=== PATIENT | male | born 1965 | race Two or more races ===

== ENCOUNTER → 2017-01-16 | Outpatient (CLI) | payer OTHER ==
[2015-09-14 11:08] VITALS: BP 120/85
[~2017-01-16] MED LIST: HYDR-971 PO
--- NOTE | 2017-01-16 16:06 | RAD ---
Exam performed: Complete abdominal sonogram. Indication:Abdominal pain Date of exam: 01/16/17 Technique:Real time valdez scale imaging of the abdomen is performed and images are obtained. Findings : The liver is somewhat increased in size and measures 19.1 cm. Mild hepatic steatosis. No intra- or extrahepatic biliary dilatation is present. The common duct measures 3.0 mm . The gallbladder appears normal. The pancreas is suboptimally evaluated due to overlying bowel gas. The spleen in size and measures 9.0 cm. Both kidneys are unremarkable without evidence for hydronephrosis. Right kidney measures 11.3 x 6.0 x 5.4 and the left kidney measures 10.1 x 5.1 x 5.5. The inferior vena cava and aorta appear normal. Impression: Hepatomegaly with diffuse hepatic steatosis.
== END | disposition home or self-care (01) ==
LOC: US 15:08
PROVIDERS: ATTEND Family Medicine
DX: K76.0 Fatty (change of) liver, not elsewhere classified (principal); R16.0 Hepatomegaly, not elsewhere classified
CPT/HCPCS: 76700

== ENCOUNTER 2018-08-17 11:53 | Inpatient (IN) | payer OTHER ==
[~2018-08-17] VITALS: Ht 165.1 cm; Wt 80.3 kg
[~2018-08-17 11:53] MED LIST changes: +HYDR-3164 PO; -HYDR-971 PO
[2018-08-17] MEDS ORDERED: fentaNYL PF VIAL 100 MCG/2 ML VIAL IV ONE (12:45)
[2018-08-17] MEDS ORDERED: ONDANSETRON PF 4 MG/2 ML VIAL. IV ONE (12:45)
[2018-08-17] MEDS ORDERED: IV NORMAL SALINE 1000ML BAG 1,000 ML IV ONE ×2 (12:45→13:15)
[2018-08-17 12:52] LABS: BASO % 0 % (0-3); EOS % 0 % (0-3); HEMATOCRIT 54.8 % (39.0-53.0); HEMOGLOBIN 18.6 g/dL (13.0-17.5); LYMPH # 0.4 x10^3/uL (1.0-4.8); LYMPH % 6 % (24-48); MEAN CORPUSCULAR HEMOGLOBIN 31 pg (25-35); MEAN CORPUSCULAR HGB CONC 34 g/dL (31-37); MEAN CORPUSCULAR VOLUME 90 fL (79-100); MONO # 0.7 x10^3/uL (0.0-1.1); MONO % 11 % (0-9); NEUT # 5.4 x10^3uL (1.8-7.7); NEUT % 82 % (31-73); PLATELET COUNT 259 x10^3/uL (140-400); RED BLOOD COUNT 6.09 x10^6/uL (4.30-5.70); RED CELL DISTRIBUTION WIDTH 13.9 % (11.5-14.5); WHITE BLOOD COUNT 6.5 x10^3/uL (4.0-11.0)
[2018-08-17 13:00] LABS: PROTHROMBIN TIME PATIENT 13.3 SEC (11.7-14.0)
[2018-08-17 13:03] LABS: CALCIUM 8.3 mg/dL (8.5-10.1); CREATININE 1.9 mg/dL (0.7-1.3); GFR 37.1; POTASSIUM 3.6 mmol/L (3.5-5.1)
[2018-08-17 13:09] LABS: ALBUMIN 4.4 g/dL (3.4-5.0); TOTAL BILIRUBIN 0.6 mg/dL (0.2-1.0); TOTAL PROTEIN 8.9 g/dL (6.4-8.2)
--- NOTE | 2018-08-17 13:38 | PHYS DOC ---
Past Medical History Past Medical History: Other Additional Past Medical Histor: ULCER Past Surgical History: Other Additional Past Surgical Histo: TUMOR ON STOMACH Alcohol Use: None Drug Use: None Adult General Chief Complaint Chief Complaint: ABDOMINAL PAIN HPI HPI Patient is a 53 year old with two day history of fever, chills, nausea, vomiting, and diarrhea accompanied by generalized abdominal pain. Patient has had multiple episodes of vomiting and watery diarrhea and was seen by Dr. Guerrero prior to coming to the ER, who ordered upright and supine abdominal xray which demonstrated multiple dilate loops of small bowel with air-fluid levels suspicious for bowel obstruction. Pt reports he had abdominal surgery several years ago for an abdominal tumor. Pt denies CP, SOB. cramping diffuse x twenty four hours. Review of Systems Review of Systems Constitutional: Denies fever. Reports chills.[] Eyes: Denies change in visual acuity, redness, or eye pain [] HENT: Denies nasal congestion or sore throat [] Respiratory: Denies cough or shortness of breath [] Cardiovascular: No additional information not addressed in HPI [] GI: Reports generalized abdominal pain, repeated episodes of nausea and vomiting and diarrhea. Denies hematochezia and blood per rectum. [] : Denies dysuria or hematuria [] Musculoskeletal: Denies back pain or joint pain [] Integument: Denies rash or skin lesions [] Neurologic: Denies headache, focal weakness or sensory changes [] Endocrine: Denies polyuria or polydipsia [] All other systems were reviewed and found to be within normal limits, except as documented in this note. Current Medications Current Medications Current Medications Medications (Trade) Dose Ordered Sig/Dev Start Time Stop Time Status Last Admin Dose Admin Fentanyl Citrate (Fentanyl 2ml Vial) 50 mcg 1X ONCE 08/17/18 12:45 08/17/18 12:46 DC 08/17/18 13:11 50 MCG Ondansetron HCl (Zofran) 4 mg 1X ONCE 08/17/18 12:45 08/17/18 12:46 DC 08/17/18 13:11 4 MG Sodium Chloride 1,000 ml @ 1,000 mls/hr 1X ONCE 08/17/18 13:15 08/17/18 14:14 DC 08/17/18 14:41 1,000 MLS/HR Allergies Allergies Allergies Coded Allergies Type Severity Reaction Last Updated Verified No Known Drug Allergies 09/06/15 No Physical Exam Physical Exam Constitutional: Well developed, well nourished, appears uncomfortable but in no acute distress, non-toxic appearance. [] HENT: Normocephalic, atraumatic, bilateral external ears normal, oropharynx moist, no oral exudates, nose normal. [] Eyes: PERRLA, EOMI, conjunctiva normal, no discharge. [] Neck: Normal range of motion, no tenderness, supple, no stridor. [] Cardiovascular:Heart rate regular rhythm, no murmur [] Lungs & Thorax: Bilateral breath sounds clear to auscultation [] Abdomen: Large, pink, well healed, centrally located surgical scar. Bowel sounds auscultated in RUQ, diminished in RLQ, LUQ and LLQ. Abdomen soft, with LUQ, LLQ tenderness tenderness, no masses, no pulsatile masses. [] Skin: Warm, dry, no erythema, no rash. [] Back: No tenderness, no CVA tenderness. [] Extremities: No tenderness, no cyanosis, no clubbing, ROM intact, no edema. [] Neurologic: Alert and oriented X 3, normal motor function, normal sensory function, no focal deficits noted. [] Psychologic: Affect normal, judgement normal, mood normal. [] Current Patient Data Vital Signs Vital Signs Date Time Temp Pulse Resp B/P (MAP) Pulse Ox O2 Delivery O2 Flow Rate FiO2 08/17/18 13:46 109 128/84 (99) 91 Room Air 08/17/18 12:08 98.9 18 98.9 Lab Values Laboratory Tests Test 08/17/18 12:33 White Blood Count 6.5 x10^3/uL (4.0-11.0) Red Blood Count 6.09 x10^6/uL (4.30-5.70) H Hemoglobin 18.6 g/dL (13.0-17.5) H Hematocrit 54.8 % (39.0-53.0) H Mean Corpuscular Volume 90 fL (79-100) Mean Corpuscular Hemoglobin 31 pg (25-35) Mean Corpuscular Hemoglobin Concent 34 g/dL (31-37) Red Cell Distribution Width 13.9 % (11.5-14.5) Platelet Count 259 x10^3/uL (140-400) Neutrophils (%) (Auto) 82 % (31-73) H Lymphocytes (%) (Auto) 6 % (24-48) L Monocytes (%) (Auto) 11 % (0-9) H Eosinophils (%) (Auto) 0 % (0-3) Basophils (%) (Auto) 0 % (0-3) Neutrophils # (Auto) 5.4 x10^3uL (1.8-7.7) Lymphocytes # (Auto) 0.4 x10^3/uL (1.0-4.8) L Monocytes # (Auto) 0.7 x10^3/uL (0.0-1.1) Eosinophils # (Auto) 0.0 x10^3/uL (0.0-0.7) Basophils # (Auto) 0.0 x10^3/uL (0.0-0.2) Prothrombin Time 13.3 SEC (11.7-14.0) Prothrombin Time INR 1.0 (0.8-1.1) Sodium Level 137 mmol/L (136-145) Potassium Level 3.6 mmol/L (3.5-5.1) Chloride Level 99 mmol/L (98-107) Carbon Dioxide Level 18 mmol/L (21-32) L Anion Gap 20 (6-14) H Blood Urea Nitrogen 33 mg/dL (8-26) H Creatinine 1.9 mg/dL (0.7-1.3) H Estimated GFR (Cockcroft-Gault) 37.1 BUN/Creatinine Ratio 17 (6-20) Glucose Level 170 mg/dL (70-99) H Calcium Level 8.3 mg/dL (8.5-10.1) L Total Bilirubin 0.6 mg/dL (0.2-1.0) Aspartate Amino Transferase (AST) 20 U/L (15-37) Alanine Aminotransferase (ALT) 43 U/L (16-63) Alkaline Phosphatase 92 U/L (46-116) Total Protein 8.9 g/dL (6.4-8.2) H Albumin 4.4 g/dL (3.4-5.0) Albumin/Globulin Ratio 1.0 (1.0-1.7) Lipase 92 U/L (73-393) Laboratory Tests 08/17/18 12:33 Laboratory Tests 08/17/18 12:33 EKG EKG []Score quant and probable sinus tachycardia with a right bundle branch block pattern rate of 120 no obvious ischemia was noted Radiology/Procedures Radiology/Procedures Outside facility Abdominal XRAY: 08-17-2018: Upright and supine 2 views for abdominal pain Impression: Multiple dilated loops of small bowel with air-fluid levels and without Definite colonic gas identified. Appearance is suspicious for bowel obstruction. Further evaluation may be needed depending on clinical severity. Abdominal CT: Impressions pending.[] Impressions: IMPRESSION: 1. Findings are suspicious for a distal small bowel obstruction. This may be at the site of large and small bowel anastomosis, correlate with surgical history. 2. There are a couple of small low-density foci at the lower pole the right kidney, may represent cysts. 3. Prostatomegaly. Electronically signed by: Jim Laguna MD (08/17/2018 1:40 PM) [id number] DICTATED and SIGNED BY: JIM LAGUNA MD DATE: 08/17/18 1340 Course & Med Decision Making Course & Med Decision Making Pertinent Labs and Imaging studies reviewed. (See chart for details) Abdominal imaging suspicious for bowel obstruction. Treatment: Pain control and IV fluids. CT abdomen. Admission for medical management with surgical consultation recommended. i d/w nahid who recommedned ng tube and he will consult. d/w jim for admit three attempts at ng tube unsuccessful in er. agreesive iv hydration was initiated. pt aware of dx and admit plan [] Dragon Disclaimer Dragon Disclaimer This electronic medical record was generated, in whole or in part, using a voice recognition dictation system. Departure Departure Impression: Primary Impression: Small bowel obstruction Disposition: ADMITTED INPATIENT Admitting Physician: Erick Hogan Condition: STABLE Referrals: JENNIFER GUERRERO (PCP) CHELI SAMAYOA MD Aug 17, 2018 13:37
--- NOTE | 2018-08-17 13:43 | RAD ---
CT ABDOMEN PELVIS WO CONTRAST Indication: SBO ON OUTSIDE FILMS, HX ABD TUMOR REMOVED, UMBILICA HERNIA, NO PRIORS Exposure: One or more of the following individualized dose reduction techniques were utilized for this examination: 1. Automated exposure control 2. Adjustment of the mA and/or kV according to patient size 3. Use of iterative reconstruction technique. Comparison: None are available. Technique: No intravenous contrast given. No oral contrast per request. Findings: Evaluation of solid viscera, bowel and vasculature is compromised by the noncontrast technique. Mild atelectasis in the dependent lung bases. Liver and spleen unremarkable. Pancreas unremarkable. No adrenal mass. 2 small ill-defined foci of low density in the lower pole of the right kidney about 1 cm each measure less than 20 Hounsfield units, probably cysts. No hydronephrosis. No urolithiasis. No calcified gallstone. The aorta is nonaneurysmal. Small mesenteric lymph nodes are seen but no significant lymph node enlargement. Small hiatal hernia. There appear to be postsurgical changes at the right colon. This may involve a small to large bowel anastomosis. Small bowel loops are mildly dilated through most of the abdomen. The visualized colon is not distended and demonstrates no abnormal wall thickening. Prostate gland is enlarged measuring 6 cm wide. Urinary bladder demonstrates no obvious abnormality. No evidence of ascites or pneumoperitoneum. No evidence of umbilical herniation. Vertebral body height and alignment are maintained with mild degenerative spurring. Mild degenerative changes at the skeletal pelvis. IMPRESSION: 1. Findings are suspicious for a distal small bowel obstruction. This may be at the site of large and small bowel anastomosis, correlate with surgical history. 2. There are a couple of small low-density foci at the lower pole the right kidney, may represent cysts. 3. Prostatomegaly. Electronically signed by: Jim Laguna MD (08/17/2018 1:40 PM) [id number]
[2018-08-17] MEDS ORDERED: IV NORMAL SALINE 1000ML BAG 1,000 ML IV SCH (14:15)
[2018-08-17 15:00] VITALS: BP 123/88
--- NOTE | 2018-08-17 15:28 | EKG ---
[facility] [address] [place] [address] Test Date: 2018-08-17 Test Time: 13:06:09 Pat Name: FRANKI SMYTH Department: Room: 424 1 Gender: M Manager Cafe: : 1965 Requested By: CHEIL SAMAYOA Order Number: [id number] Reading MD: Zach Brewster MD Measurements Intervals [place] Rate: 120 P: -98 CT: 70 QRS: 96 QRSD: 114 T: 26 QT: 322 QTc: 460 Interpretive Statements SINUS TACHYCARDIA RBBB NON-SPECIFIC ST/T CHANGES Electronically Signed On 08-18-2018 8:35:51 CDT by Zach Brewster MD
--- NOTE | 2018-08-17 15:37 | PDOC ---
Provider Note Provider Note Pt seen.H&P dictated.#[id number]. JACQUELINE GOLDSTEIN MD Aug 17, 2018 15:37
[2018-08-17] MEDS ORDERED: ONDANSETRON PF 4 MG/2 ML VIAL. IV PRN (15:45)
--- NOTE | 2018-08-17 15:45 | NUR ---
Pt arrived to unit by wc from ED. A&Ox4, Vietnamese speaking only (per pt he can't read or write). Dr. Hogan at bedside at time of admissions, informed of unsuccessful NG insertion attempts, orders to do under radiology received, pt states that he had a broken nose in the past which could be cause for failure on attempts. VSS. C/O of abd pain 12/26, will get orders for pain meds. IVF infusing. Teenager son who translated for pt in ED at bedside. Pt wears special brace in his boots to ambulate d/t malinda feet defect at to which he states he had surgery at . Hospital policies reviewed, call light within reach, will continue to monitor.
[2018-08-17] MEDS ORDERED: IOHEXOL 300 MG/ML 100ML VIAL. PO ONE (16:00)
[2018-08-17] MEDS ORDERED: CONTRAST GIVEN. MC PRN (16:00)
[2018-08-17] MEDS: POTASSIUM CL 20MEQ D5-0.9%NACL 1,000 ML IV SCH (16:22)
[2018-08-17] MEDS: fentaNYL PF VIAL 100 MCG/2 ML VIAL IV PRN ×2 (16:22→21:16)
--- NOTE | 2018-08-17 16:41 | RAD ---
Fluoroscopically guided NG tube insertion, 08/17/2018: HISTORY: Small bowel obstruction, unsuccessful NG tube insertion Under fluoroscopic guidance an NG tube was passed through the patient's right nostril into the esophagus and eventually into the stomach. Its distal end is coiled in the body and fundus of the stomach. A single fluoroscopic spot image was recorded. 3.8 minutes of fluoroscopy time was utilized. The patient left the department in stable condition. Electronically signed by: Eduardo Shipley MD (08/17/2018 4:38 PM) [facility]
--- NOTE | 2018-08-17 17:11 | RAD ---
EXAM: Pelvis and left hip, 3 views. HISTORY: Pain. COMPARISON: None. FINDINGS: A frontal view the pelvis and frontal and frog-leg views left hip are obtained. There is no fracture, dislocation or subluxation. There is minimal bilateral acetabular and femoral head spurring. There is a suspected incidental bone island within the proximal right femur. IMPRESSION: Minimal bilateral hip osteoarthritis. Electronically signed by: Yessi Bach MD (08/17/2018 5:08 PM) [id number]
--- NOTE | 2018-08-17 18:29 | HP ---
ADMIT DATE: 08/17/2018 REASON FOR ADMISSION TO THE HOSPITAL: Partial small-bowel obstruction. HISTORY OF PRESENT ILLNESS: The patient is a 53-year-old male. The patient was seen in Dr. Maynard's office, was sent to the Emergency Room because of abdominal pain. The patient had an abdominal surgery in 08/2015, 3 years ago. 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 He was having nausea, abdominal pain. He came to the Emergency Room. CT scan showed a possible obstruction of the distal small intestine at the junction of the large intestine. The patient was seen by ER. Surgery consult was requested. PAST MEDICAL HISTORY: Denies any major diabetes, hypertension. PAST SURGICAL HISTORY: 1. He had surgery 3 years ago for appendix cystadenoma, which was benign, had a right colon surgery, anastomosis of the small intestine to the colon. 2. The patient had corrective surgery when he was child in both feet. He uses braces. ALLERGIES: No known drug allergies. MEDICATIONS AT HOME: The patient is on hydrocodone for pain p.r.n. PERSONAL HISTORY: Denies smoking, alcohol, drug abuse. FAMILY HISTORY: Unremarkable. REVIEW OF SYMPTOMS: No chest pain. Has some diarrhea for last 2 days, has abdominal pain, mild nausea and vomiting. PHYSICAL EXAMINATION: VITAL SIGNS: At the time of admission shows temperature 98, pulse 120, respirations 18, blood pressure 141/84, 95% on room air. HEENT: Head is atraumatic. Pupils equal. Oral cavity, few teeth absent in the upper. NECK: Supple. Thyroid not enlarged. JVD not elevated. CHEST: Symmetrical. CARDIOVASCULAR: S1, S2. LUNGS: Clear. ABDOMEN: A scar in the midline from surgery, slight pain in the right lower quadrant. No rebound was present. EXTERNAL GENITALIA: No May[place]a. RECTAL: Deferred. EXTREMITIES: No calf tenderness, no edema. Pulses 1+. NEUROLOGIC: Moving all extremities. No focal deficits noted. LABORATORY DATA: Shows a white count of 6, hemoglobin 18, platelets 259. INR 1.0. Electrolytes show sodium 137, potassium 3.6, chloride 99, bicarbonate 18, anion gap 20, BUN 33, creatinine 1.9, glucose 170. LFTs normal. CT scan of the abdomen and pelvis showed a distal small-bowel obstruction, prostate enlargement. FINAL IMPRESSION: 1. Partial small-bowel obstruction. 2. History of previous abdominal surgery, had a right colectomy 3 years back, right partial colon removed with anastomosis. There is a slight obstruction at that site, which was a cystadenoma, benign at that time. 3. Mild renal insufficiency. 4. History of corrective surgery in the feet. PLAN: At this time, admit, surgical consult, NG tube, IV fluids, monitor electrolytes. JACQUELINE GOLDSTEIN MD DR: CHAPARRITA/hi JOB#: [id number] / [id number]
[2018-08-17 19:00] VITALS: BP 108/75
[2018-08-17 23:00] VITALS: BP 117/80
[2018-08-18] MEDS: POTASSIUM CL 20MEQ D5-0.9%NACL 1,000 ML IV SCH ×3 (02:42→21:35)
[2018-08-18 03:00] VITALS: BP 104/68
[2018-08-18 03:20] LABS: BASO % 0 % (0-3); EOS % 0 % (0-3); HEMATOCRIT 46.9 % (39.0-53.0); HEMOGLOBIN 15.8 g/dL (13.0-17.5); LYMPH # 1.5 x10^3/uL (1.0-4.8); LYMPH % 43 % (24-48); MEAN CORPUSCULAR HEMOGLOBIN 30 pg (25-35); MEAN CORPUSCULAR HGB CONC 34 g/dL (31-37); MEAN CORPUSCULAR VOLUME 90 fL (79-100); MONO # 0.7 x10^3/uL (0.0-1.1); MONO % 21 % (0-9); NEUT # 1.3 x10^3uL (1.8-7.7); NEUT % 36 % (31-73); PLATELET COUNT 198 x10^3/uL (140-400); RED BLOOD COUNT 5.21 x10^6/uL (4.30-5.70); WHITE BLOOD COUNT 3.5 x10^3/uL (4.0-11.0)
[2018-08-18 03:33] LABS: CALCIUM 7.4 mg/dL (8.5-10.1); CREATININE 1.2 mg/dL (0.7-1.3); GFR 63.1; POTASSIUM 3.6 mmol/L (3.5-5.1)
[2018-08-18 05:03] LABS: % ATYL 3 % (0-0); % BANDS 12 % (0-9); % LYMPHS 49 % (24-48); % MONOS 21 % (0-10); % SEGS 15 % (35-66); PLT ESTIMATE ADEQUATE (ADEQUATE)
[2018-08-18] MEDS: fentaNYL PF VIAL 100 MCG/2 ML VIAL IV PRN ×2 (06:07→22:04)
[2018-08-18 07:00] VITALS: BP 109/70
--- NOTE | 2018-08-18 09:04 | PDOC2 ---
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 Reports he developed abdominal pain, diarrhea on Friday. Attempted to eat a hamburger and threw up. He does report continued watery stools(once yesterday and one this AM). Reports + flatus today Past Medical History GI: GERD Past Surgical History Past Surgical History: Colon Resection Family History Family History: Other (noncontributory to current illness ) Social History ALCOHOL: none Lives: Alone Current Problem List Problem List Problems Medical Problems: (1) Small bowel obstruction Status: Acute Current Medications Current Medications Current Medications Fentanyl Citrate (Fentanyl 2ml Vial) 50 mcg 1X ONCE IV Last administered on 08/17/18at 13:11; Start 08/17/18 at 12:45; Stop 08/17/18 at 12:46; Status DC Sodium Chloride 1,000 ml @ 1,000 mls/hr 1X ONCE IV Last administered on at 13:10; Start 08/17/18 at 12:45; Stop 08/17/18 at 13:44; Status DC Ondansetron HCl (Zofran) 4 mg 1X ONCE IV Last administered on 08/17/18at 13:11; Start 08/17/18 at 12:45; Stop 08/17/18 at 12:46; Status DC Sodium Chloride 1,000 ml @ 1,000 mls/hr 1X ONCE IV Last administered on at 14:41; Start 08/17/18 at 13:15; Stop 08/17/18 at 14:14; Status DC Sodium Chloride 1,000 ml @ 125 mls/hr Q8H IV ; Start 08/17/18 at 14:15; Stop 08/17/18 at 16:02; Status DC Potassium Chloride/Dextrose/ Sod Cl 1,000 ml @ 100 mls/hr Q10H IV Last administered on 08/18/18at 02:42; Start 08/17/18 at 16:00 Fentanyl Citrate (Fentanyl 2ml Vial) 12.5 mcg PRN Q2HR PRN IV PAIN Last administered on 08/18/18at 06:07; Start 08/17/18 at 15:45 Ondansetron HCl (Zofran) 4 mg PRN Q6HRS PRN IV NAUSEA/VOMITING Last administered on 08/17/18at 21:15; Start 08/17/18 at 15:45 Iohexol (Omnipaque 300 Mg/ml) 100 ml 1X ONCE PO Last administered on 08/17/18at 16:00; Start 08/17/18 at 16:00; Stop 08/17/18 at 16:01; Status DC Info (CONTRAST GIVEN -- Rx MONITORING) 1 each PRN DAILY PRN MC SEE COMMENTS; Start 08/17/18 at 16:00; Stop 08/19/18 at 15:59 Active Scripts Active Allergies Allergies: Coded Allergies: No Known Drug Allergies (Unverified , 09/06/15) ROS General: No: Chills, Other (fevers ) PSYCHOLOGICAL ROS: No: Anxiety, Depression Eyes: No Blurry vision, No Double vision HEENT: No: Heacaches, Sore Throat Hematological and Lymphatic: No: Bleeding Problems, Blood Clots Respiratory: No: Cough, Shortness of breath Cardiovascular: No Chest Pain, No Palpitations Gastrointestinal: Yes Other (see hpi) Genitourinary: No Dysuria, No Retention Musculoskeletal: No Joint Pain, No Muscle Pain Neurological: No Confusion, No Numbness/Tingling Skin: No Pruritus, No Rash Physical Exam General: Alert, Oriented X3, Cooperative, No acute distress HEENT: Atraumatic, Other (NG present ) Lungs: Clear to auscultation, Normal air movement Heart: Regular rate, Normal S1, Normal S2 Abdomen: Soft, No tenderness, Other (ND, midline scar present ) Extremities: No clubbing, No cyanosis Skin: No rashes, No breakdown Neuro: Normal gait, Normal speech Psych/Mental Status: Mental status NL, Mood NL MUSCULOSKELETAL: No deformity, No swelling Vitals VITALS Vital Signs Date Time Temp Pulse Resp B/P (MAP) Pulse Ox O2 Delivery O2 Flow Rate FiO2 08/18/18 06:07 20 Room Air 08/18/18 03:00 97.9 73 104/68 (80) 94 97.9 Labs Labs Laboratory Tests Test 08/17/18 12:33 08/18/18 02:55 White Blood Count 6.5 x10^3/uL (4.0-11.0) 3.5 x10^3/uL (4.0-11.0) Red Blood Count 6.09 x10^6/uL (4.30-5.70) 5.21 x10^6/uL (4.30-5.70) Hemoglobin 18.6 g/dL (13.0-17.5) 15.8 g/dL (13.0-17.5) Hematocrit 54.8 % (39.0-53.0) 46.9 % (39.0-53.0) Mean Corpuscular Volume 90 fL (79-100) 90 fL (79-100) Mean Corpuscular Hemoglobin 31 pg (25-35) 30 pg (25-35) Mean Corpuscular Hemoglobin Concent 34 g/dL (31-37) 34 g/dL (31-37) Red Cell Distribution Width 13.9 % (11.5-14.5) 14.0 % (11.5-14.5) Platelet Count 259 x10^3/uL (140-400) 198 x10^3/uL (140-400) Neutrophils (%) (Auto) 82 % (31-73) 36 % (31-73) Lymphocytes (%) (Auto) 6 % (24-48) 43 % (24-48) Monocytes (%) (Auto) 11 % (0-9) 21 % (0-9) Eosinophils (%) (Auto) 0 % (0-3) 0 % (0-3) Basophils (%) (Auto) 0 % (0-3) 0 % (0-3) Neutrophils # (Auto) 5.4 x10^3uL (1.8-7.7) 1.3 x10^3uL (1.8-7.7) Lymphocytes # (Auto) 0.4 x10^3/uL (1.0-4.8) 1.5 x10^3/uL (1.0-4.8) Monocytes # (Auto) 0.7 x10^3/uL (0.0-1.1) 0.7 x10^3/uL (0.0-1.1) Eosinophils # (Auto) 0.0 x10^3/uL (0.0-0.7) 0.0 x10^3/uL (0.0-0.7) Basophils # (Auto) 0.0 x10^3/uL (0.0-0.2) 0.0 x10^3/uL (0.0-0.2) Prothrombin Time 13.3 SEC (11.7-14.0) Prothromb Time International Ratio 1.0 (0.8-1.1) Sodium Level 137 mmol/L (136-145) 143 mmol/L (136-145) Potassium Level 3.6 mmol/L (3.5-5.1) 3.6 mmol/L (3.5-5.1) Chloride Level 99 mmol/L (98-107) 107 mmol/L (98-107) Carbon Dioxide Level 18 mmol/L (21-32) 22 mmol/L (21-32) Anion Gap 20 (6-14) 14 (6-14) Blood Urea Nitrogen 33 mg/dL (8-26) 31 mg/dL (8-26) Creatinine 1.9 mg/dL (0.7-1.3) 1.2 mg/dL (0.7-1.3) Estimated GFR (Cockcroft-Gault) 37.1 63.1 BUN/Creatinine Ratio 17 (6-20) Glucose Level 170 mg/dL (70-99) 121 mg/dL (70-99) Calcium Level 8.3 mg/dL (8.5-10.1) 7.4 mg/dL (8.5-10.1) Total Bilirubin 0.6 mg/dL (0.2-1.0) Aspartate Amino Transf (AST/SGOT) 20 U/L (15-37) Alanine Aminotransferase (ALT/SGPT) 43 U/L (16-63) Alkaline Phosphatase 92 U/L (46-116) Total Protein 8.9 g/dL (6.4-8.2) Albumin 4.4 g/dL (3.4-5.0) Albumin/Globulin Ratio 1.0 (1.0-1.7) Lipase 92 U/L (73-393) Segmented Neutrophils % 15 % (35-66) Band Neutrophils % 12 % (0-9) Lymphocytes % 49 % (24-48) Atypical Lymphocytes % (Manual) 3 % (0-0) Monocytes % 21 % (0-10) Platelet Estimate Adequate (ADEQUATE) Laboratory Tests Test 08/17/18 12:33 08/18/18 02:55 White Blood Count 6.5 x10^3/uL (4.0-11.0) 3.5 x10^3/uL (4.0-11.0) Red Blood Count 6.09 x10^6/uL (4.30-5.70) 5.21 x10^6/uL (4.30-5.70) Hemoglobin 18.6 g/dL (13.0-17.5) 15.8 g/dL (13.0-17.5) Hematocrit 54.8 % (39.0-53.0) 46.9 % (39.0-53.0) Mean Corpuscular Volume 90 fL (79-100) 90 fL (79-100) Mean Corpuscular Hemoglobin 31 pg (25-35) 30 pg (25-35) Mean Corpuscular Hemoglobin Concent 34 g/dL (31-37) 34 g/dL (31-37) Red Cell Distribution Width 13.9 % (11.5-14.5) 14.0 % (11.5-14.5) Platelet Count 259 x10^3/uL (140-400) 198 x10^3/uL (140-400) Neutrophils (%) (Auto) 82 % (31-73) 36 % (31-73) Lymphocytes (%) (Auto) 6 % (24-48) 43 % (24-48) Monocytes (%) (Auto) 11 % (0-9) 21 % (0-9) Eosinophils (%) (Auto) 0 % (0-3) 0 % (0-3) Basophils (%) (Auto) 0 % (0-3) 0 % (0-3) Neutrophils # (Auto) 5.4 x10^3uL (1.8-7.7) 1.3 x10^3uL (1.8-7.7) Lymphocytes # (Auto) 0.4 x10^3/uL (1.0-4.8) 1.5 x10^3/uL (1.0-4.8) Monocytes # (Auto) 0.7 x10^3/uL (0.0-1.1) 0.7 x10^3/uL (0.0-1.1) Eosinophils # (Auto) 0.0 x10^3/uL (0.0-0.7) 0.0 x10^3/uL (0.0-0.7) Basophils # (Auto) 0.0 x10^3/uL (0.0-0.2) 0.0 x10^3/uL (0.0-0.2) Prothrombin Time 13.3 SEC (11.7-14.0) Prothromb Time International Ratio 1.0 (0.8-1.1) Sodium Level 137 mmol/L (136-145) 143 mmol/L (136-145) Potassium Level 3.6 mmol/L (3.5-5.1) 3.6 mmol/L (3.5-5.1) Chloride Level 99 mmol/L (98-107) 107 mmol/L (98-107) Carbon Dioxide Level 18 mmol/L (21-32) 22 mmol/L (21-32) Anion Gap 20 (6-14) 14 (6-14) Blood Urea Nitrogen 33 mg/dL (8-26) 31 mg/dL (8-26) Creatinine 1.9 mg/dL (0.7-1.3) 1.2 mg/dL (0.7-1.3) Estimated GFR (Cockcroft-Gault) 37.1 63.1 BUN/Creatinine Ratio 17 (6-20) Glucose Level 170 mg/dL (70-99) 121 mg/dL (70-99) Calcium Level 8.3 mg/dL (8.5-10.1) 7.4 mg/dL (8.5-10.1) Total Bilirubin 0.6 mg/dL (0.2-1.0) Aspartate Amino Transf (AST/SGOT) 20 U/L (15-37) Alanine Aminotransferase (ALT/SGPT) 43 U/L (16-63) Alkaline Phosphatase 92 U/L (46-116) Total Protein 8.9 g/dL (6.4-8.2) Albumin 4.4 g/dL (3.4-5.0) Albumin/Globulin Ratio 1.0 (1.0-1.7) Lipase 92 U/L (73-393) Segmented Neutrophils % 15 % (35-66) Band Neutrophils % 12 % (0-9) Lymphocytes % 49 % (24-48) Atypical Lymphocytes % (Manual) 3 % (0-0) Monocytes % 21 % (0-10) Platelet Estimate Adequate (ADEQUATE) Assessment/Plan Assessment/Plan SBO on imaging having diarrhea since Friday bowel rest, NG in place will check plain films--sbo vs ileus with gastroenteritis TUAN RAVI MD 08/19/18 0757: CONSULT Assessment/Plan Assessment/Plan Pt seen and examined by myself (evaluation done on 08/18, note entered 08/19) Pt admitted due to abdominal pain, admits to diarrhea last few days; currently denies pain, feeling well; PMH/PSH/ROS/SH as above; exam: alert, oriented, comfortable, no neck masses, lungs clear, heart RR and R, abdomen soft, nontender, healed midline incision, ext neg for edema; CT and xrays reviewed; PSBO vs ileus, enteritis; clinically having stool and flatus, no further pain at this time; given CT results will check SB series on 08/19 to further evaluate. FLAVIO [employer]MANA [employer] Aug 18, 2018 09:04 TUAN RAVI MD Aug 19, 2018 07:57
--- NOTE | 2018-08-18 09:25 | RAD ---
Acute abdomen series with chest, 08/18/2018: HISTORY: Small bowel obstruction An NG tube is in place with its distal end coiled in the body of the stomach. There is moderate gaseous distention of small bowel loops with scattered air-fluid levels. Similar small bowel distention was evident on yesterday's CT study. There is only small amount of gas in the colon without colonic distention. No free air is present in the abdomen. There is no evidence organomegaly minimal prostatic calcification is present. The heart size and pulmonary vascularity are normal. There is minimal linear atelectasis in the right base. IMPRESSION: 1. The NG tube extends in the stomach. 2. Ongoing small bowel obstruction. Electronically signed by: Eduardo Shipley MD (08/18/2018 9:21 AM) [facility]
--- NOTE | 2018-08-18 10:32 | PDOC ---
IM PROGRESS NOTES- Subjective Subjective No complaints of abdominal pain, nausea and vomiting. He states that he is passing gas and passed some stool. Objective Vitals Vital Signs Date Time Temp Pulse Resp B/P (MAP) Pulse Ox O2 Delivery O2 Flow Rate FiO2 08/18/18 07:00 97.5 71 20 109/70 (83) 95 Room Air 97.5 Input & Output Intake and Output 08/18/18 07:00 Intake Total 1000 ml Output Total 800 ml Balance 200 ml IV Total 1000 ml Output Gastric Drainage Total 200 ml Drainage Total 600 ml # Voids 3 # Bowel Movements 2 Physical Exam Physical Exam General appearance - alert,ill appearing, and in no distress and oriented to person, place, and time Mental Status - alert, oriented to person, place, and time, affect appropriate to mood Head - normal Chest - clear to auscultation, no wheezes, rales or rhonchi, symmetric air entry Heart - S1 and S2 normal Abdomen - soft, distended bowel sounds unable to hear. Neurological - alert and oriented Musculoskeletal - no muscular tenderness noted Extremities - no pedal edema Skin - warm and dry Labs Laboratory Tests Test 08/17/18 12:33 08/18/18 02:55 White Blood Count 6.5 x10^3/uL (4.0-11.0) 3.5 x10^3/uL (4.0-11.0) Red Blood Count 6.09 x10^6/uL (4.30-5.70) 5.21 x10^6/uL (4.30-5.70) Hemoglobin 18.6 g/dL (13.0-17.5) 15.8 g/dL (13.0-17.5) Hematocrit 54.8 % (39.0-53.0) 46.9 % (39.0-53.0) Mean Corpuscular Volume 90 fL (79-100) 90 fL (79-100) Mean Corpuscular Hemoglobin 31 pg (25-35) 30 pg (25-35) Mean Corpuscular Hemoglobin Concent 34 g/dL (31-37) 34 g/dL (31-37) Red Cell Distribution Width 13.9 % (11.5-14.5) 14.0 % (11.5-14.5) Platelet Count 259 x10^3/uL (140-400) 198 x10^3/uL (140-400) Neutrophils (%) (Auto) 82 % (31-73) 36 % (31-73) Lymphocytes (%) (Auto) 6 % (24-48) 43 % (24-48) Monocytes (%) (Auto) 11 % (0-9) 21 % (0-9) Eosinophils (%) (Auto) 0 % (0-3) 0 % (0-3) Basophils (%) (Auto) 0 % (0-3) 0 % (0-3) Neutrophils # (Auto) 5.4 x10^3uL (1.8-7.7) 1.3 x10^3uL (1.8-7.7) Lymphocytes # (Auto) 0.4 x10^3/uL (1.0-4.8) 1.5 x10^3/uL (1.0-4.8) Monocytes # (Auto) 0.7 x10^3/uL (0.0-1.1) 0.7 x10^3/uL (0.0-1.1) Eosinophils # (Auto) 0.0 x10^3/uL (0.0-0.7) 0.0 x10^3/uL (0.0-0.7) Basophils # (Auto) 0.0 x10^3/uL (0.0-0.2) 0.0 x10^3/uL (0.0-0.2) Prothrombin Time 13.3 SEC (11.7-14.0) Prothromb Time International Ratio 1.0 (0.8-1.1) Sodium Level 137 mmol/L (136-145) 143 mmol/L (136-145) Potassium Level 3.6 mmol/L (3.5-5.1) 3.6 mmol/L (3.5-5.1) Chloride Level 99 mmol/L (98-107) 107 mmol/L (98-107) Carbon Dioxide Level 18 mmol/L (21-32) 22 mmol/L (21-32) Anion Gap 20 (6-14) 14 (6-14) Blood Urea Nitrogen 33 mg/dL (8-26) 31 mg/dL (8-26) Creatinine 1.9 mg/dL (0.7-1.3) 1.2 mg/dL (0.7-1.3) Estimated GFR (Cockcroft-Gault) 37.1 63.1 BUN/Creatinine Ratio 17 (6-20) Glucose Level 170 mg/dL (70-99) 121 mg/dL (70-99) Calcium Level 8.3 mg/dL (8.5-10.1) 7.4 mg/dL (8.5-10.1) Total Bilirubin 0.6 mg/dL (0.2-1.0) Aspartate Amino Transf (AST/SGOT) 20 U/L (15-37) Alanine Aminotransferase (ALT/SGPT) 43 U/L (16-63) Alkaline Phosphatase 92 U/L (46-116) Total Protein 8.9 g/dL (6.4-8.2) Albumin 4.4 g/dL (3.4-5.0) Albumin/Globulin Ratio 1.0 (1.0-1.7) Lipase 92 U/L (73-393) Segmented Neutrophils % 15 % (35-66) Band Neutrophils % 12 % (0-9) Lymphocytes % 49 % (24-48) Atypical Lymphocytes % (Manual) 3 % (0-0) Monocytes % 21 % (0-10) Platelet Estimate Adequate (ADEQUATE) Laboratory Tests Test 08/17/18 12:33 08/18/18 02:55 White Blood Count 6.5 x10^3/uL (4.0-11.0) 3.5 x10^3/uL (4.0-11.0) Red Blood Count 6.09 x10^6/uL (4.30-5.70) 5.21 x10^6/uL (4.30-5.70) Hemoglobin 18.6 g/dL (13.0-17.5) 15.8 g/dL (13.0-17.5) Hematocrit 54.8 % (39.0-53.0) 46.9 % (39.0-53.0) Mean Corpuscular Volume 90 fL (79-100) 90 fL (79-100) Mean Corpuscular Hemoglobin 31 pg (25-35) 30 pg (25-35) Mean Corpuscular Hemoglobin Concent 34 g/dL (31-37) 34 g/dL (31-37) Red Cell Distribution Width 13.9 % (11.5-14.5) 14.0 % (11.5-14.5) Platelet Count 259 x10^3/uL (140-400) 198 x10^3/uL (140-400) Neutrophils (%) (Auto) 82 % (31-73) 36 % (31-73) Lymphocytes (%) (Auto) 6 % (24-48) 43 % (24-48) Monocytes (%) (Auto) 11 % (0-9) 21 % (0-9) Eosinophils (%) (Auto) 0 % (0-3) 0 % (0-3) Basophils (%) (Auto) 0 % (0-3) 0 % (0-3) Neutrophils # (Auto) 5.4 x10^3uL (1.8-7.7) 1.3 x10^3uL (1.8-7.7) Lymphocytes # (Auto) 0.4 x10^3/uL (1.0-4.8) 1.5 x10^3/uL (1.0-4.8) Monocytes # (Auto) 0.7 x10^3/uL (0.0-1.1) 0.7 x10^3/uL (0.0-1.1) Eosinophils # (Auto) 0.0 x10^3/uL (0.0-0.7) 0.0 x10^3/uL (0.0-0.7) Basophils # (Auto) 0.0 x10^3/uL (0.0-0.2) 0.0 x10^3/uL (0.0-0.2) Prothrombin Time 13.3 SEC (11.7-14.0) Prothromb Time International Ratio 1.0 (0.8-1.1) Sodium Level 137 mmol/L (136-145) 143 mmol/L (136-145) Potassium Level 3.6 mmol/L (3.5-5.1) 3.6 mmol/L (3.5-5.1) Chloride Level 99 mmol/L (98-107) 107 mmol/L (98-107) Carbon Dioxide Level 18 mmol/L (21-32) 22 mmol/L (21-32) Anion Gap 20 (6-14) 14 (6-14) Blood Urea Nitrogen 33 mg/dL (8-26) 31 mg/dL (8-26) Creatinine 1.9 mg/dL (0.7-1.3) 1.2 mg/dL (0.7-1.3) Estimated GFR (Cockcroft-Gault) 37.1 63.1 BUN/Creatinine Ratio 17 (6-20) Glucose Level 170 mg/dL (70-99) 121 mg/dL (70-99) Calcium Level 8.3 mg/dL (8.5-10.1) 7.4 mg/dL (8.5-10.1) Total Bilirubin 0.6 mg/dL (0.2-1.0) Aspartate Amino Transf (AST/SGOT) 20 U/L (15-37) Alanine Aminotransferase (ALT/SGPT) 43 U/L (16-63) Alkaline Phosphatase 92 U/L (46-116) Total Protein 8.9 g/dL (6.4-8.2) Albumin 4.4 g/dL (3.4-5.0) Albumin/Globulin Ratio 1.0 (1.0-1.7) Lipase 92 U/L (73-393) Segmented Neutrophils % 15 % (35-66) Band Neutrophils % 12 % (0-9) Lymphocytes % 49 % (24-48) Atypical Lymphocytes % (Manual) 3 % (0-0) Monocytes % 21 % (0-10) Platelet Estimate Adequate (ADEQUATE) Meds Current Medications Fentanyl Citrate (Fentanyl 2ml Vial) 12.5 mcg PRN Q2HR PRN IV PAIN Last administered on 08/18/18at 06:07; Start 08/17/18 at 15:45 Fentanyl Citrate (Fentanyl 2ml Vial) 50 mcg 1X ONCE IV Last administered on 08/17/18at 13:11; Start 08/17/18 at 12:45; Stop 08/17/18 at 12:46; Status DC Info (CONTRAST GIVEN -- Rx MONITORING) 1 each PRN DAILY PRN MC SEE COMMENTS; Start 08/17/18 at 16:00; Stop 08/19/18 at 15:59 Iohexol (Omnipaque 300 Mg/ml) 100 ml 1X ONCE PO Last administered on 08/17/18at 16:00; Start 08/17/18 at 16:00; Stop 08/17/18 at 16:01; Status DC Ondansetron HCl (Zofran) 4 mg 1X ONCE IV Last administered on 08/17/18at 13:11; Start 08/17/18 at 12:45; Stop 08/17/18 at 12:46; Status DC Ondansetron HCl (Zofran) 4 mg PRN Q6HRS PRN IV NAUSEA/VOMITING Last administered on 08/17/18at 21:15; Start 08/17/18 at 15:45 Potassium Chloride/Dextrose/ Sod Cl 1,000 ml @ 100 mls/hr Q10H IV Last administered on 08/18/18at 02:42; Start 08/17/18 at 16:00 Sodium Chloride 1,000 ml @ 125 mls/hr Q8H IV ; Start 08/17/18 at 14:15; Stop 08/17/18 at 16:02; Status DC Sodium Chloride 1,000 ml @ 1,000 mls/hr 1X ONCE IV Last administered on at 13:10; Start 08/17/18 at 12:45; Stop 08/17/18 at 13:44; Status DC Sodium Chloride 1,000 ml @ 1,000 mls/hr 1X ONCE IV Last administered on at 14:41; Start 08/17/18 at 13:15; Stop 08/17/18 at 14:14; Status DC Assessment Assessment 1. Partial small-bowel obstruction. 2. History of previous abdominal surgery, had a right colectomy 3 years back, right partial colon removed with anastomosis. There is a slight obstruction at that site, which was a cystadenoma, benign at that time. 3. Mild renal insufficiency. 4. History of corrective surgery in the feet. PLAN: At this time, admit, surgical consult, NG tube, IV fluids, monitor electrolytes. Potassium level is 3.6. Creatinine has decreased from 1.9-1.2. Clinically slowly improving. Continue present treatment. Discussed with the patient and the family. Plan Plan For more details regarding further plans, please refer to the orders. GARCIA BROTHERS MD Aug 18, 2018 10:32
[2018-08-18 11:17] VITALS: BP 107/71
--- NOTE | 2018-08-18 11:26 | NUR ---
SW following for discharge planning. Discussed with RN, pt is from home with family and is [place] speaking only. Pt having a small bowel series today. SW will continue to follow for any discharge planning needs.
[2018-08-18 15:04] VITALS: BP 110/70
[2018-08-18 19:15] VITALS: BP 111/75
[2018-08-18 22:59] VITALS: BP 93/50
[2018-08-19 03:04] VITALS: BP 112/52
[2018-08-19 03:31] LABS: BASO % 0 % (0-3); EOS % 1 % (0-3); HEMOGLOBIN 15.2 g/dL (13.0-17.5); LYMPH # 1.5 x10^3/uL (1.0-4.8); LYMPH % 34 % (24-48); MEAN CORPUSCULAR HEMOGLOBIN 31 pg (25-35); MEAN CORPUSCULAR HGB CONC 34 g/dL (31-37); MEAN CORPUSCULAR VOLUME 91 fL (79-100); MONO # 0.7 x10^3/uL (0.0-1.1); MONO % 15 % (0-9); NEUT # 2.1 x10^3uL (1.8-7.7); NEUT % 49 % (31-73); PLATELET COUNT 205 x10^3/uL (140-400); RED BLOOD COUNT 4.94 x10^6/uL (4.30-5.70); RED CELL DISTRIBUTION WIDTH 14.1 % (11.5-14.5); WHITE BLOOD COUNT 4.3 x10^3/uL (4.0-11.0)
[2018-08-19 03:48] LABS: CALCIUM 7.8 mg/dL (8.5-10.1); CREATININE 1.2 mg/dL (0.7-1.3); GFR 63.1; POTASSIUM 3.6 mmol/L (3.5-5.1)
[2018-08-19 07:00] VITALS: BP 103/63
[2018-08-19] MEDS ORDERED: IOHEXOL 300 MG/ML 100ML VIAL. PO ONE (07:45)
[2018-08-19] MEDS ORDERED: CONTRAST GIVEN. MC PRN (07:45)
[2018-08-19] MEDS: POTASSIUM CL 20MEQ D5-0.9%NACL 1,000 ML IV SCH (08:00)
--- NOTE | 2018-08-19 09:14 | NUR ---
SW following. Discussed with RN, pt having a small bowel series today. RN advised no SW needs at this time. SW will continue to follow.
--- NOTE | 2018-08-19 09:41 | PDOC ---
PROGRESS NOTES Subjective Subjective small bowel series today Objective Objective Vital Signs Date Time Temp Pulse Resp B/P (MAP) Pulse Ox O2 Delivery O2 Flow Rate FiO2 08/19/18 07:00 98.2 63 18 103/63 (76) 96 Room Air 98.2 Intake and Output 08/19/18 06:59 Intake Total 0 ml Output Total 100 ml Balance -100 ml Intake Oral 0 ml Drainage Total 100 ml # Voids 3 # Bowel Movements 1 Physical Exam Abdomen: Soft, No tenderness, Other (ND, midline scar present ) Heart: Regular rate, Normal S1, Normal S2 Extremities: No clubbing, No cyanosis General: Alert, Oriented X3, Cooperative, No acute distress HEENT: Atraumatic, Other (NG present ) Lungs: Clear to auscultation, Normal air movement MUSCULOSKELETAL: No deformity, No swelling Neuro: Normal gait, Normal speech Psych/Mental Status: Mental status NL, Mood NL Skin: No rashes, No breakdown Diagnosis Problem List Problems Medical Problems: (1) Small bowel obstruction Status: Acute Assessment Assessment 1. Partial small-bowel obstruction. 2. History of previous abdominal surgery, had a right colectomy 3 years back, right partial colon removed with anastomosis. There is a slight obstruction at that site, which was a cystadenoma, benign at that time. 3. Mild renal insufficiency. 4. History of corrective surgery in the feet. PLAN: SB series today labs good surgical consult appreciated. iv fluids ngt. Plan Plan of Care Problems Medical Problems: (1) Small bowel obstruction Status: Acute Comment Review of Relevant I have reviewed the following items norma (where applicable) has been applied. Labs Laboratory Tests Test 08/19/18 02:50 White Blood Count 4.3 x10^3/uL (4.0-11.0) Red Blood Count 4.94 x10^6/uL (4.30-5.70) Hemoglobin 15.2 g/dL (13.0-17.5) Hematocrit 45.0 % (39.0-53.0) Mean Corpuscular Volume 91 fL (79-100) Mean Corpuscular Hemoglobin 31 pg (25-35) Mean Corpuscular Hemoglobin Concent 34 g/dL (31-37) Red Cell Distribution Width 14.1 % (11.5-14.5) Platelet Count 205 x10^3/uL (140-400) Neutrophils (%) (Auto) 49 % (31-73) Lymphocytes (%) (Auto) 34 % (24-48) Monocytes (%) (Auto) 15 % (0-9) Eosinophils (%) (Auto) 1 % (0-3) Basophils (%) (Auto) 0 % (0-3) Neutrophils # (Auto) 2.1 x10^3uL (1.8-7.7) Lymphocytes # (Auto) 1.5 x10^3/uL (1.0-4.8) Monocytes # (Auto) 0.7 x10^3/uL (0.0-1.1) Eosinophils # (Auto) 0.0 x10^3/uL (0.0-0.7) Basophils # (Auto) 0.0 x10^3/uL (0.0-0.2) Sodium Level 145 mmol/L (136-145) Potassium Level 3.6 mmol/L (3.5-5.1) Chloride Level 110 mmol/L (98-107) Carbon Dioxide Level 26 mmol/L (21-32) Anion Gap 9 (6-14) Blood Urea Nitrogen 27 mg/dL (8-26) Creatinine 1.2 mg/dL (0.7-1.3) Estimated GFR (Cockcroft-Gault) 63.1 Glucose Level 112 mg/dL (70-99) Calcium Level 7.8 mg/dL (8.5-10.1) Medications Current Medications Info (CONTRAST GIVEN -- Rx MONITORING) 1 each PRN DAILY PRN MC SEE COMMENTS; Start 08/19/18 at 07:45; Stop 08/21/18 at 07:44 Iohexol (Omnipaque 300 Mg/ml) 400 ml 1X ONCE PO ; Start 08/19/18 at 07:45; Stop 08/19/18 at 07:46; Status DC Vitals/I & O Vital Sign - Last 24 Hours 08/18/18 08/18/18 08/18/18 08/18/18 11:17 15:04 19:15 20:00 Temp 98.5 97.1 98.0 98.5 97.1 98.0 Pulse 59 63 66 Resp 20 18 20 B/P (MAP) 107/71 (83) 110/70 (83) 111/75 (87) Pulse Ox 99 97 97 O2 Delivery Room Air Room Air Room Air Room Air 08/18/18 08/18/18 08/18/18 08/19/18 22:04 22:34 22:59 03:04 Temp 97.5 98.0 97.5 98.0 Pulse 62 66 Resp 20 18 18 16 B/P (MAP) 93/50 (64) 112/52 (72) Pulse Ox 95 95 O2 Delivery Room Air Room Air Room Air Room Air 08/19/18 07:00 Temp 98.2 98.2 Pulse 63 Resp 18 B/P (MAP) 103/63 (76) Pulse Ox 96 O2 Delivery Room Air Intake and Output 08/18/18 08/18/18 08/19/18 14:59 22:59 06:59 Intake Total 0 ml 0 ml Output Total 100 ml Balance 0 ml -100 ml JACQUELINE GOLDSTEIN MD Aug 19, 2018 09:41
--- NOTE | 2018-08-19 10:22 | RAD ---
Small bowel series, 08/19/2018: History: Small bowel obstruction The preliminary abdominal image demonstrates mild residual gaseous distention of several small bowel loops in the left mid to upper abdomen. This appears to have improved since yesterday's study. There are surgical sutures in the right upper quadrant. An NG tube extends into the stomach. Following oral ingestion of liquid barium digital abdominal radiographs were obtained. 0.9 minutes of fluoroscopy time was also utilized with 6 fluoroscopic spot images were recorded. The duodenum is unremarkable. There is mild gaseous distention of loops of jejunum and ileum. No fold thickening is seen. There are loops of terminal ileum near the ileocolic anastomosis in the right upper quadrant which are of normal caliber. No focal obstructing process is identified. The contrast material reached the colon at 40 minutes. IMPRESSION: Mild residual distention of mid and distal small bowel loops without evidence of a focal obstructing process. The terminal ileum near the ileocolic anastomosis is of normal caliber. The findings may reflect a resolving partial small bowel obstruction or ileus.
[2018-08-19 11:00] VITALS: BP 123/79
--- NOTE | 2018-08-19 11:01 | PDOC ---
PROGRESS NOTES Subjective Subjective doing well, no problems Objective Objective Vital Signs Date Time Temp Pulse Resp B/P (MAP) Pulse Ox O2 Delivery O2 Flow Rate FiO2 08/19/18 07:00 98.2 63 18 103/63 (76) 96 Room Air 98.2 Intake and Output 08/19/18 07:00 Intake Total 0 ml Output Total 100 ml Balance -100 ml Intake Oral 0 ml Drainage Total 100 ml # Voids 3 # Bowel Movements 1 Physical Exam Abdomen: Soft, No tenderness Heart: Regular rate Extremities: No clubbing, No cyanosis General: Alert, Oriented X3 HEENT: Atraumatic Lungs: Clear to auscultation Neuro: Normal speech Psych/Mental Status: Mental status NL Assessment Assessment Problems Medical Problems: (1) Small bowel obstruction Status: Acute Plan Plan of Care SB series ok, no obstruction, clinically improved; start diet, ok to discharge if tolerates Comment Review of Relevant I have reviewed the following items norma (where applicable) has been applied. Labs Laboratory Tests Test 08/17/18 12:33 08/18/18 02:55 08/19/18 02:50 White Blood Count 6.5 x10^3/uL (4.0-11.0) 3.5 x10^3/uL (4.0-11.0) 4.3 x10^3/uL (4.0-11.0) Red Blood Count 6.09 x10^6/uL (4.30-5.70) 5.21 x10^6/uL (4.30-5.70) 4.94 x10^6/uL (4.30-5.70) Hemoglobin 18.6 g/dL (13.0-17.5) 15.8 g/dL (13.0-17.5) 15.2 g/dL (13.0-17.5) Hematocrit 54.8 % (39.0-53.0) 46.9 % (39.0-53.0) 45.0 % (39.0-53.0) Mean Corpuscular Volume 90 fL (79-100) 90 fL (79-100) 91 fL (79-100) Mean Corpuscular Hemoglobin 31 pg (25-35) 30 pg (25-35) 31 pg (25-35) Mean Corpuscular Hemoglobin Concent 34 g/dL (31-37) 34 g/dL (31-37) 34 g/dL (31-37) Red Cell Distribution Width 13.9 % (11.5-14.5) 14.0 % (11.5-14.5) 14.1 % (11.5-14.5) Platelet Count 259 x10^3/uL (140-400) 198 x10^3/uL (140-400) 205 x10^3/uL (140-400) Neutrophils (%) (Auto) 82 % (31-73) 36 % (31-73) 49 % (31-73) Lymphocytes (%) (Auto) 6 % (24-48) 43 % (24-48) 34 % (24-48) Monocytes (%) (Auto) 11 % (0-9) 21 % (0-9) 15 % (0-9) Eosinophils (%) (Auto) 0 % (0-3) 0 % (0-3) 1 % (0-3) Basophils (%) (Auto) 0 % (0-3) 0 % (0-3) 0 % (0-3) Neutrophils # (Auto) 5.4 x10^3uL (1.8-7.7) 1.3 x10^3uL (1.8-7.7) 2.1 x10^3uL (1.8-7.7) Lymphocytes # (Auto) 0.4 x10^3/uL (1.0-4.8) 1.5 x10^3/uL (1.0-4.8) 1.5 x10^3/uL (1.0-4.8) Monocytes # (Auto) 0.7 x10^3/uL (0.0-1.1) 0.7 x10^3/uL (0.0-1.1) 0.7 x10^3/uL (0.0-1.1) Eosinophils # (Auto) 0.0 x10^3/uL (0.0-0.7) 0.0 x10^3/uL (0.0-0.7) 0.0 x10^3/uL (0.0-0.7) Basophils # (Auto) 0.0 x10^3/uL (0.0-0.2) 0.0 x10^3/uL (0.0-0.2) 0.0 x10^3/uL (0.0-0.2) Prothrombin Time 13.3 SEC (11.7-14.0) Prothromb Time International Ratio 1.0 (0.8-1.1) Sodium Level 137 mmol/L (136-145) 143 mmol/L (136-145) 145 mmol/L (136-145) Potassium Level 3.6 mmol/L (3.5-5.1) 3.6 mmol/L (3.5-5.1) 3.6 mmol/L (3.5-5.1) Chloride Level 99 mmol/L (98-107) 107 mmol/L (98-107) 110 mmol/L (98-107) Carbon Dioxide Level 18 mmol/L (21-32) 22 mmol/L (21-32) 26 mmol/L (21-32) Anion Gap 20 (6-14) 14 (6-14) 9 (6-14) Blood Urea Nitrogen 33 mg/dL (8-26) 31 mg/dL (8-26) 27 mg/dL (8-26) Creatinine 1.9 mg/dL (0.7-1.3) 1.2 mg/dL (0.7-1.3) 1.2 mg/dL (0.7-1.3) Estimated GFR (Cockcroft-Gault) 37.1 63.1 63.1 BUN/Creatinine Ratio 17 (6-20) Glucose Level 170 mg/dL (70-99) 121 mg/dL (70-99) 112 mg/dL (70-99) Calcium Level 8.3 mg/dL (8.5-10.1) 7.4 mg/dL (8.5-10.1) 7.8 mg/dL (8.5-10.1) Total Bilirubin 0.6 mg/dL (0.2-1.0) Aspartate Amino Transf (AST/SGOT) 20 U/L (15-37) Alanine Aminotransferase (ALT/SGPT) 43 U/L (16-63) Alkaline Phosphatase 92 U/L (46-116) Total Protein 8.9 g/dL (6.4-8.2) Albumin 4.4 g/dL (3.4-5.0) Albumin/Globulin Ratio 1.0 (1.0-1.7) Lipase 92 U/L (73-393) Segmented Neutrophils % 15 % (35-66) Band Neutrophils % 12 % (0-9) Lymphocytes % 49 % (24-48) Atypical Lymphocytes % (Manual) 3 % (0-0) Monocytes % 21 % (0-10) Platelet Estimate Adequate (ADEQUATE) Laboratory Tests Test 08/19/18 02:50 White Blood Count 4.3 x10^3/uL (4.0-11.0) Red Blood Count 4.94 x10^6/uL (4.30-5.70) Hemoglobin 15.2 g/dL (13.0-17.5) Hematocrit 45.0 % (39.0-53.0) Mean Corpuscular Volume 91 fL (79-100) Mean Corpuscular Hemoglobin 31 pg (25-35) Mean Corpuscular Hemoglobin Concent 34 g/dL (31-37) Red Cell Distribution Width 14.1 % (11.5-14.5) Platelet Count 205 x10^3/uL (140-400) Neutrophils (%) (Auto) 49 % (31-73) Lymphocytes (%) (Auto) 34 % (24-48) Monocytes (%) (Auto) 15 % (0-9) Eosinophils (%) (Auto) 1 % (0-3) Basophils (%) (Auto) 0 % (0-3) Neutrophils # (Auto) 2.1 x10^3uL (1.8-7.7) Lymphocytes # (Auto) 1.5 x10^3/uL (1.0-4.8) Monocytes # (Auto) 0.7 x10^3/uL (0.0-1.1) Eosinophils # (Auto) 0.0 x10^3/uL (0.0-0.7) Basophils # (Auto) 0.0 x10^3/uL (0.0-0.2) Sodium Level 145 mmol/L (136-145) Potassium Level 3.6 mmol/L (3.5-5.1) Chloride Level 110 mmol/L (98-107) Carbon Dioxide Level 26 mmol/L (21-32) Anion Gap 9 (6-14) Blood Urea Nitrogen 27 mg/dL (8-26) Creatinine 1.2 mg/dL (0.7-1.3) Estimated GFR (Cockcroft-Gault) 63.1 Glucose Level 112 mg/dL (70-99) Calcium Level 7.8 mg/dL (8.5-10.1) Medications Current Medications Fentanyl Citrate (Fentanyl 2ml Vial) 50 mcg 1X ONCE IV Last administered on 13:11; Start 08/17/18 at 12:45; Stop 08/17/18 at 12:46; Status DC Sodium Chloride 1,000 ml @ 1,000 mls/hr 1X ONCE IV Last administered on at 13:10; Start 08/17/18 at 12:45; Stop 08/17/18 at 13:44; Status DC Ondansetron HCl (Zofran) 4 mg 1X ONCE IV Last administered on 08/17/18 13:11; Start 08/17/18 at 12:45; Stop 08/17/18 at 12:46; Status DC Sodium Chloride 1,000 ml @ 1,000 mls/hr 1X ONCE IV Last administered on at 14:41; Start 08/17/18 at 13:15; Stop 08/17/18 at 14:14; Status DC Sodium Chloride 1,000 ml @ 125 mls/hr Q8H IV ; Start 08/17/18 at 14:15; Stop 08/17/18 at 16:02; Status DC Potassium Chloride/Dextrose/ Sod Cl 1,000 ml @ 100 mls/hr Q10H IV Last administered on 08/18/18at 21:35; Start 08/17/18 at 16:00 Fentanyl Citrate (Fentanyl 2ml Vial) 12.5 mcg PRN Q2HR PRN IV PAIN Last administered on 08/18/18 22:04; Start 08/17/18 at 15:45 Ondansetron HCl (Zofran) 4 mg PRN Q6HRS PRN IV NAUSEA/VOMITING Last administered on 08/17/18 21:15; Start 08/17/18 at 15:45 Iohexol (Omnipaque 300 Mg/ml) 100 ml 1X ONCE PO Last administered on 08/17/18 16:00; Start 08/17/18 at 16:00; Stop 08/17/18 at 16:01; Status DC Info (CONTRAST GIVEN -- Rx MONITORING) 1 each PRN DAILY PRN MC SEE COMMENTS; Start 08/17/18 at 16:00; Stop 08/19/18 at 15:59 Iohexol (Omnipaque 300 Mg/ml) 400 ml 1X ONCE PO Last administered on 08/19/18at 09:39; Start 08/19/18 at 07:45; Stop 08/19/18 at 07:46; Status DC Info (CONTRAST GIVEN -- Rx MONITORING) 1 each PRN DAILY PRN MC SEE COMMENTS; Start 08/19/18 at 07:45; Stop 08/21/18 at 07:44 Active Scripts Active Vitals/I & O Vital Sign - Last 24 Hours 08/18/18 08/18/18 08/18/18 08/18/18 11:17 15:04 19:15 20:00 Temp 98.5 97.1 98.0 98.5 97.1 98.0 Pulse 59 63 66 Resp 20 18 20 B/P (MAP) 107/71 (83) 110/70 (83) 111/75 (87) Pulse Ox 99 97 97 O2 Delivery Room Air Room Air Room Air Room Air 08/18/18 08/18/18 08/18/18 08/19/18 22:04 22:34 22:59 03:04 Temp 97.5 98.0 97.5 98.0 Pulse 62 66 Resp 20 18 18 16 B/P (MAP) 93/50 (64) 112/52 (72) Pulse Ox 95 95 O2 Delivery Room Air Room Air Room Air Room Air 08/19/18 07:00 Temp 98.2 98.2 Pulse 63 Resp 18 B/P (MAP) 103/63 (76) Pulse Ox 96 O2 Delivery Room Air Intake and Output 08/18/18 08/18/18 08/19/18 15:00 23:00 07:00 Intake Total 0 ml 0 ml Output Total 100 ml Balance 0 ml -100 ml TUAN RAVI MD Aug 19, 2018 11:01
[2018-08-19 15:00] VITALS: BP 123/87
--- NOTE | 2018-08-19 17:59 | NUR ---
Pt discharged home with self care. Instructions were discussed. Pt verbalized understanding. IV removed. Pt ambulated to main entrance with [employer] and family.
--- NOTE | 2018-08-20 16:07 | PDOC ---
Provider Note Provider Note Discharge summary dictated. #[id number] JACQUELINE GOLDSTEIN MD Aug 20, 2018 16:07
--- NOTE | 2018-08-20 22:11 | DS ---
DATE OF DISCHARGE: 08/19/2018 ATTENDING PHYSICIAN: Dr. Goldstein. PRIMARY PHYSICIAN: Dr. Maynard. REASON FOR ADMISSION TO THE HOSPITAL: Partial small-bowel obstruction. CONSULTATION: Dr. Redd. PROCEDURES DONE: 1. CT of the abdomen and pelvis. 2. Small bowel series. HOSPITAL COURSE: The patient is a 53-year-old male. The patient had a previous surgery on the appendix 3 years ago and he had a partial colon removed and anastomosis was done with the small intestine and the large intestine. This was done 3 years ago, he was doing relatively well. He came to Dr. Maynard's office for abdominal pain and was sent to the Emergency Room. X-ray shows a small-bowel obstruction. The patient had a CT scan, which shows a distal small-bowel obstruction at the site of anastomosis. The patient was seen by General Surgery. Initially NG tube was planned, but unsuccessful. The patient was given fluids, rest and then had a small bowel series after 2 days and that shows improvement in the small bowel loop, resolving partial small-bowel obstruction. The patient's laboratory data was recent. White count was 6, hemoglobin 18, platelets 259. Electrolytes: BUN 33, creatinine 1.9. With hydration, BUN came down to 27, creatinine 1.2. FINAL IMPRESSION: 1. Partial small-bowel obstruction, distal small intestine, resolved. 2. Acute renal functions improved with IV fluids. 3. Diabetes. 4. 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 Anastomosis was done to small intestine with the large intestine, so at the junction there was a partial small-bowel obstruction, which was resolved. DISPOSITION: Home. See [facility] for discharge medications. JACQUELINE GOLDSTEIN MD DR: CHAPARRITA/hi JOB#: [id number] / [id number] Ajay Amaral MD
== END 2018-08-19 17:45 | disposition home or self-care (01) | DRG 388 ==
LOC: ER 11:53 → 4 NORTH 14:00
PROVIDERS: ADMIT Internal Medicine; ATTEND Internal Medicine
PROC: 0D9670Z Drainage of Stomach with Drainage Device, Via Natural or Artificial Opening (ICD-10-PCS; principal; 2018-08-17)
DX: K56.600 Partial intestinal obstruction, unspecified as to cause (principal); N17.0 Acute kidney failure with tubular necrosis; N28.9 Disorder of kidney and ureter, unspecified; E11.9 Type 2 diabetes mellitus without complications; K21.9 Gastro-esophageal reflux disease without esophagitis; N40.0 Benign prostatic hyperplasia without lower urinary tract symptoms; Z90.49 Acquired absence of other specified parts of digestive tract
CPT/HCPCS: 36415; 43752; 73502; 74022; 74176; 74250; 80048; 80053; 83690; 85007; 85025; 85610; 93005; 96361; 96374; 96375; J2405; J3010; J7030; Q9967; 99285-25